=== PATIENT | female | born 1985 | race Caucasian/White ===

== ENCOUNTER 2018-03-27 09:59 | Emergency (ER) | payer OTHER ==
[~2018-03-27] VITALS: Ht 152.4 cm; Wt 70.3 kg
[2018-03-27] MEDS ORDERED: IBUPROFEN 800800 M1 PO (10:09)
[2018-03-27] MEDS ORDERED: FLEXERIL PO (10:10)
[2018-03-27 10:34] VITALS: BP 164/92
== END 2018-03-27 10:42 | disposition home or self-care (01) ==
LOC: M.ERS 09:59
DX: S39.012A Strain of muscle, fascia and tendon of lower back, initial encounter (principal); X58.XXXA Exposure to other specified factors, initial encounter; Y93.89 Activity, other specified; Y92.89 Other specified places as the place of occurrence of the external cause; Y99.8 Other external cause status